=== PATIENT | female | born 2000 | race African-American/Black ===

== ENCOUNTER 2022-10-06 16:58 | Emergency (ER) | payer SELFPAY ==
[2022-10-06] MEDS ORDERED: Iopamidol 755 Mg/ML 100 ML Bottle IVPUSH ONE (19:38)
[2022-10-06] MEDS ORDERED: Sodium Chloride 0.9% 100 ML IV SCH (19:45)
== END 2022-10-06 21:28 | disposition home or self-care (01) ==
LOC: EDBD 16:58 → JD.ED 16:58
DX: O99.891 Other specified diseases and conditions complicating pregnancy (principal); M54.6 Pain in thoracic spine; Z3A.01 Less than 8 weeks gestation of pregnancy
CPT/HCPCS: 36415; 71045; 71275; 80053; 83690; 84484; 84702; 85025; 86140; 93005; 99284; J3490; Q9967; 93010